=== PATIENT | female | born 1965 | race Asian ===

== ENCOUNTER → 2019-03-18 13:19 | Outpatient (CLI) | payer OTHER, SELFPAY ==
[2019-03-18 15:04] LABS: Alanine Aminotransferase 25 IU/L (<35); Albumin 4.3 g/dL (3.5-5.0); Albumin Globulin Ratio 1.3 (1.0-2.8); Alkaline Phosphatase 61 U/L (38-126); Aspartate Aminotransferase 25 IU/L (14-36); Bilirubin Total 0.4 mg/dL (0.2-1.3); Blood Urea Nitrogen 22 mg/dL (7-17); Calcium 9.3 mg/dL (8.4-10.2); Carbon Dioxide 29 mmol/L (22-32); Chloride 101 mmol/L (98-107); Cholesterol 181 mg/dL (140-199); Estimated Glomerular Filt Rate > 60.0 mL/min (>60); Globulin 3.4 g/dL (1.7-4.1); Glucose 91 mg/dL (70-100); HDL Cholesterol 67 mg/dL (40-60); HEMOLYSIS < 15 (0-50); LDL Cholesterol Calculated 107 mg/dL (<100); Potassium 3.9 mmol/L (3.4-5.1); Sodium 140 mmol/L (137-145); Total Protein 7.7 g/dL (6.3-8.2); Triglycerides 37 mg/dL (35-150)
== END ==
PROVIDERS: Visit Provider Specialist
DX: E78.00 Pure hypercholesterolemia, unspecified (principal)
CPT/HCPCS: 36415; 80053; 80061

== ENCOUNTER → 2019-03-18 19:14 | Outpatient (CLI) | payer OTHER, SELFPAY ==
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
== END ==
DX: M25.512 Pain in left shoulder (principal); M19.012 Primary osteoarthritis, left shoulder; M75.52 Bursitis of left shoulder; M75.122 Complete rotator cuff tear or rupture of left shoulder, not specified as traumatic
CPT/HCPCS: 73221

== ENCOUNTER 2019-08-14 09:39 | Emergency (ER) | payer BC, SELFPAY ==
[2019-08-14] VITALS (7 sets, daily range): BP systolic 106–144; BP diastolic 62–79; PULSE 74–93; RESP 12–16; TEMP 36.8; O2SAT 96–100; BMI 24.0
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
[2019-08-14 10:20] LABS: Add Manual Diff / Slide Review NO; Basophils Absolute Auto 0 /uL (0-100); Basophils Percent Auto 0.5 % (0-2); Eosinophils Absolute Auto 100 /uL (0-450); Eosinophils Percent Auto 3.1 % (2-4); Hematocrit 38.7 % (36-46); Hemoglobin 13.1 g/dL (12.0-16.0); Lymphocytes Absolute Auto 1600 /uL (1100-4500); Lymphocytes Percent Auto 35.2 % (25-40); Mean Corpuscular HGB Conc 33.7 % (30-36); Mean Corpuscular Hemoglobin 32.2 PG (26-34); Mean Corpuscular Volume 95.5 fL (80-100); Monocytes Absolute Auto 300 /uL (0-900); Monocytes Percent Auto 6.6 % (3-14); Neutrophils Absolute Auto 2400 /uL (1500-7000); Neutrophils Percent Auto 54.6 % (50-75); Platelet Count 229 X10^3/uL (150-400); Red Blood Cell Count 4.06 X10^6/uL (4.0-5.2); Red Cell Distribution Width 13.3 % (11.6-14.8); White Blood Cell Count 4.4 X10^3/uL (4.5-11.0)
[2019-08-14 10:26] LABS: Prothrombin Time 11.7 SECONDS (10.1-12.7)
[2019-08-14 10:29] LABS: PTT Partial Thromboplastin Tim 32 SECONDS (26.4-36.2)
--- NOTE | 2019-08-14 10:29 | PC.NURSE ---
Pt refusing pain and nausea meds at this time
[2019-08-14 10:32] LABS: Lipase 174 U/L (23-300)
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
[2019-08-14] MEDS: CEFTRIAXONE 1 GM/50 ML FROZ.PIGGY IV (12:11)
[2019-08-14] MEDS: LIDOCAINE 4% SOLN 50 ML (12:11)
[2019-08-14] MEDS: VANCOMYCIN 1,000 MG/200 ML PIGGYBACK 200 MG IV (12:34)
[2019-08-14 13:42] LABS: Bacteria Urine None Seen; RBC Urine None Seen (0-5/HPF); WBC Urine None Seen (0-5/HPF)
[2019-08-14] MEDS: ACETAMINOPHEN 325 MG TABLET 975 MG PO (13:50)
[2019-08-14 13:56] LABS: Appearance Urine UA CLEAR; Bilirubin Urine UA NEGATIVE (NEGATIVE); Color Urine UA YELLOW; Glucose Urine UA NEGATIVE (Negative); Ketones Urine UA NEGATIVE (NEGATIVE); Leukocyte Esterase Urine UA NEGATIVE (NEGATIVE); Nitrite Urine UA NEGATIVE (Negative); Occult Blood Urine UA NEGATIVE (Negative); Protein Urine UA NEGATIVE (Negative); Urobilinogen Urine UA 0.2 E.U./dL (0.2)
[2019-08-14 13:59] LABS: Culture Indicated Urine Cult Not Indicated; Squamous Epithelial Cell Urine 0-1 /HPF (0-5/HPF); Transitional Epi Cells Urine 0-1/HPF (0-5/HPF)
[2019-08-14] MEDS: GENTAMICIN 1 APPLIC EYE-LEFT (14:32)
[2019-08-14] MEDS: BACITRACIN OINT 0.9 GM PCKT 5 APPLIC TOP (14:32)
--- NOTE | 2019-08-14 15:00 | PC.NURSE ---
Multiple bandages applied,antibiotic ointment to face,bilateral hands,left forearm,bilateral knees and left hip/abd area.
== END 2019-08-14 15:11 | disposition home or self-care (01) ==
PROVIDERS: Emergency Provider Emergency Medicine; Referring Provider Emergency Medicine
DX: G93.89 Other specified disorders of brain (principal); S09.90XA Unspecified injury of head, initial encounter; S09.93XA Unspecified injury of face, initial encounter; S39.91XA Unspecified injury of abdomen, initial encounter; S30.811A Abrasion of abdominal wall, initial encounter; S50.312A Abrasion of left elbow, initial encounter; S60.511A Abrasion of right hand, initial encounter; S80.212A Abrasion, left knee, initial encounter; S80.211A Abrasion, right knee, initial encounter; V19.9XXA Pedal cyclist (driver) (passenger) injured in unspecified traffic accident, initial encounter
CPT/HCPCS: 36415; 70450; 70486; 71250; 72125; 72170; 73070; 73562; 74176; 81001; 83605; 83690; 85025; 85610; 85730; 86850; 86900; 86901; 96365; 96368; 99285

== ENCOUNTER → 2020-04-05 16:40 | Outpatient (CLI) | payer OTHER, SELFPAY ==
--- NOTE | 2020-04-05 16:42 | DI.MG.S_ITS ---
BILATERAL DIGITAL SCREENING MAMMOGRAM 3D/2D WITH CAD: 04/05/2020 CLINICAL: Routine screening. Comparison is made to exams dated: 07/21/2017 mammogram - [facility], 07/04/2012 mammogram, and 01/26/2009 ultrasound - [facility]. There are scattered fibroglandular elements in both breasts. Current study was also evaluated with a Computer Aided Detection (CAD) system. No significant masses, calcifications, or other findings are seen in either breast. There has been no significant interval change. IMPRESSION: NEGATIVE There is no mammographic evidence of malignancy. A 1 year screening mammogram is recommended. This exam was interpreted at Station ID: [id number]. NOTE: For mammograms, a report in lay terms will be sent to the patient. Approximately 15% of breast malignancies will not be visualized mammographically. In the management of a palpable breast mass, a negative mammogram must not discourage biopsy of a clinically suspicious lesion. Electronically Signed By: Caleb [email or web address]/[email or web address]:04/05/2020 17:25:30 letter sent: Normal Exam ACR BI-RADS Category 1: Negative [id number]
== END ==
PROVIDERS: Referring Provider Specialist; Visit Provider Specialist
DX: Z12.31 Encounter for screening mammogram for malignant neoplasm of breast (principal)
CPT/HCPCS: 77063; 77067